=== PATIENT | male | born 1985 | race Caucasian/White ===

== ENCOUNTER 2020-08-02 18:39 | Emergency (ER) | payer MEDICAID ==
[~2020-08-02] VITALS: Ht 180.3 cm; Wt 81.0 kg
[~2020-08-02 18:39] MED LIST: CYCL-1 PO; HYDR-4383 PO; MARIJUANA
[2020-08-02 18:42] VITALS: BP 159/80
[2020-08-02] MEDS ORDERED: HYDROcodone/acetaminophen 5mg/325mg tablet PO ONE (19:30)
[2020-08-02] MEDS ORDERED: ondansetron 4mg rapidly disintigrating tab PO ONE (19:30)
[2020-08-02] MEDS ORDERED: IBUP-1984 PO (19:30)
[2020-08-02] MEDS ORDERED: bacitracin 15gm ointment TP ONE (20:20)
== END 2020-08-02 20:24 | disposition home or self-care (01) ==
LOC: ER 18:40
DX: S40.212A Abrasion of left shoulder, initial encounter (principal); S40.812A Abrasion of left upper arm, initial encounter; S80.812A Abrasion, left lower leg, initial encounter; F12.90 Cannabis use, unspecified, uncomplicated; Z72.89 Other problems related to lifestyle; Z88.5 Allergy status to narcotic agent; Z79.899 Other long term (current) drug therapy; W18.39XA Other fall on same level, initial encounter; Y93.89 Activity, other specified; Y92.89 Other specified places as the place of occurrence of the external cause; Y99.8 Other external cause status
CPT/HCPCS: 99284

== ENCOUNTER 2020-11-03 20:02 | Inpatient (IN) | payer MEDICAID ==
[~2020-11-03] VITALS: Ht 180.3 cm; Wt 72.0 kg
[2020-11-03] MEDS ORDERED: TETanus/Pertussis (Acell)/Diphther VAC/PF (Tdap-Adult) 0.5ml syringe IMVAC ONE (20:15)
[2020-11-03] MEDS ORDERED: ondansetron/PF 4mg/2ml inj IV ONE (20:15)
--- NOTE | 2020-11-03 20:35 | NUR ---
7 cm index finger 23 cm circling palm 26.5 cm forearm
[2020-11-03] MEDS: morphine 4 MG/ML inj SYRINge IV PRN ×2 (20:37→22:21)
--- NOTE | 2020-11-03 20:40 | NUR ---
index 8.5cm hand 21.5 forearm 27.5
[2020-11-03 20:43] LABS: PARTIAL THROMBOPLASTIN TIME 28 SECONDS (22-32)
[2020-11-03 20:46] LABS: BASOPHILS % (AUTO) 0.4 % (0-1); EOSINOPHILS # (AUTO) 0.4 X10'3 (0-0.9); HEMATOCRIT 40.4 % (42.0-52.0); HEMOGLOBIN 13.6 g/dl (14.0-17.9); LYMPHOCYTES # (AUTO) 4.3 X10'3 (1.1-4.8); LYMPHOCYTES % (AUTO) 41.3 % (21-51); MEAN CORPUSCULAR HEMOGLOBIN 29.8 PG (27.0-31.0); MEAN CORPUSCULAR HGB CONC 33.7 g/dL (33.0-36.5); MEAN CORPUSCULAR VOLUME 88.4 FL (78-98); MEAN PLATELET VOLUME 8.2 FL (7.4-10.4); MONOCYTES # (AUTO) 1.1 X10'3 (0-0.9); MONOCYTES % (AUTO) 10.2 % (2-12); NEUTROPHILS # (AUTO) 4.5 X10'3 (1.8-7.7); NEUTROPHILS % (AUTO) 44.1 % (42-75); PLATELET COUNT 313 X10'3 (140-440); RED BLOOD COUNT 4.57 X10'6 (4.70-6.10); RED CELL DISTRIBUTION WIDTH 13.4 % (11.5-14.5); WHITE BLOOD COUNT 10.3 X10'3 (4.5-11.0)
[2020-11-03] MEDS ORDERED: antivenin, crotalidae fab inj 6 VIAL in normal saline 250ml IV soln 250 ML IV STA ×2 (21:33)
[2020-11-03] MEDS ORDERED: magnesium Cl slow-release 64mg tablet PO PRN (22:00)
[2020-11-03] MEDS ORDERED: magnesium 2GM in 50ml NS 50 ML IV PRN (22:00)
[2020-11-03] MEDS ORDERED: morphine 2 MG/ML inj. syringe IV PRN (22:00)
[2020-11-03] MEDS ORDERED: potassium Cl 20 mEq SR tablet PO PRN ×2 (22:00)
[2020-11-03] MEDS ORDERED: mag hydrox/Alum hydrox/simeth 30ml oral suspension PO PRN (22:00)
[2020-11-03] MEDS ORDERED: potassium CL 10mEq/100ml bag 100 ML IV PRN ×2 (22:00)
[2020-11-03] MEDS ORDERED: magnesium hydroxide 30ml (MOM) UD suspension PO PRN (22:00)
[2020-11-03] MEDS ORDERED: acetaminophen 325mg tablet PO PRN (22:00)
[2020-11-03] MEDS ORDERED: magnesium 4gm in 100ml NS 100 ML IV PRN (22:00)
[2020-11-03] MEDS ORDERED: HYDROcodone/acetaminophen 5mg/325mg tablet PO PRN (22:00)
[2020-11-03] MEDS ORDERED: ondansetron/PF 4mg/2ml inj IV PRN (22:00)
[2020-11-03] MEDS ORDERED: METH10OR2 PO (22:16)
--- NOTE | 2020-11-03 22:32 | NUR ---
7.5 cm index 22 palm 27.5 forearm
--- NOTE | 2020-11-04 00:09 | NUR ---
8 cm index 22 cm palm 27.5 cm forearm
[2020-11-04 01:23] LABS: ALANINE AMINOTRANSFERASE 30 U/L (12-78); ALBUMIN 3.9 G/DL (3.4-5.0); ALBUMIN/GLOBULIN RATIO 1.1 (1.1-1.5); ALKALINE PHOSPHATASE 79 IU/L (46-116); ANION GAP 6 (8-16); ASPARTATE AMINO TRANSFERASE 25 U/L (10-37); BILIRUBIN,TOTAL 0.2 MG/DL (0.1-1.0); BLOOD UREA NITROGEN 15 MG/DL (7-18); CALCIUM 8.6 MG/DL (8.5-10.1); CHLORIDE 104 MMOL/L (99-107); CREATININE 0.94 MG/DL (0.60-1.10); GLUCOSE 95 MG/DL (70-104); MAGNESIUM 1.9 MG/DL (1.5-2.4); SODIUM 139 MMOL/L (135-145); TOTAL CARBON DIOXIDE 29.4 MMOL/L (24-32); TOTAL PROTEIN 7.4 G/DL (6.4-8.2); eGFR > 90 ML/MIN
[2020-11-04 01:29] LABS: BASOPHILS # (AUTO) 0.1 X10'3 (0-0.2); BASOPHILS % (AUTO) 0.6 % (0-1); EOSINOPHILS # (AUTO) 0.1 X10'3 (0-0.9); EOSINOPHILS % (AUTO) 1.1 % (0-6); HEMATOCRIT 37.9 % (42.0-52.0); HEMOGLOBIN 13.1 g/dl (14.0-17.9); LYMPHOCYTES # (AUTO) 1.6 X10'3 (1.1-4.8); MEAN CORPUSCULAR HEMOGLOBIN 30.6 PG (27.0-31.0); MEAN CORPUSCULAR HGB CONC 34.7 g/dL (33.0-36.5); MEAN CORPUSCULAR VOLUME 88.3 FL (78-98); MEAN PLATELET VOLUME 7.9 FL (7.4-10.4); MONOCYTES # (AUTO) 0.7 X10'3 (0-0.9); MONOCYTES % (AUTO) 6.9 % (2-12); NEUTROPHILS # (AUTO) 7.3 X10'3 (1.8-7.7); NEUTROPHILS % (AUTO) 75.4 % (42-75); PLATELET COUNT 241 X10'3 (140-440); RED BLOOD COUNT 4.29 X10'6 (4.70-6.10); RED CELL DISTRIBUTION WIDTH 12.9 % (11.5-14.5); WHITE BLOOD COUNT 9.7 X10'3 (4.5-11.0)
--- NOTE | 2020-11-04 01:52 | NUR ---
no changes in swelling. still has pain in finger
[2020-11-04] MEDS: morphine 4 MG/ML inj SYRINge IV PRN ×5 (02:19→18:36)
--- NOTE | 2020-11-04 02:45 | NUR ---
8 cm index 22 palm cm 25 cm forearm
--- NOTE | 2020-11-04 04:34 | NUR ---
8.3 CM INDEX 24CM PALM 27 FOREARM
--- NOTE | 2020-11-04 04:36 | NUR ---
PAGED MD TRAVIS ABOUT INCREASE IN SWELLING
[2020-11-04] MEDS ORDERED: oxyCODONE/APAP 10/325mg tablet PO PRN (04:50)
--- NOTE | 2020-11-04 04:50 | NUR ---
SPOKE WITH POISON CONTROL THEY RECOMMEND 4-6 VIAL DOSE OF CROFAB WITH INCREASE IN SWELLING. PAGED MD ABOUT RECOMMENDATION
[2020-11-04] MEDS ORDERED: methadone 10mg tablet PO ONE (05:35)
--- NOTE | 2020-11-04 06:14 | NUR ---
8.3 cm index 22 cm palm 28 cm forearm
[2020-11-04] MEDS: antivenin, crotalidae fab inj 6 VIAL in normal saline 250ml IV soln 250 ML IV SCH ×4 (06:29→10:51)
--- NOTE | 2020-11-04 07:25 | NUR ---
8.3 index 22.3 wrist 27.7 forearm
[2020-11-04] MEDS ORDERED: METHADONE PO SCH (08:00)
[2020-11-04] MEDS: K and/or MAG REPLACEMENT MC SCH ×2 (08:00→19:04)
[2020-11-04 09:37] LABS: BASOPHILS % (AUTO) 0.3 % (0-1); EOSINOPHILS % (AUTO) 0.4 % (0-6); HEMATOCRIT 41.3 % (42.0-52.0); LYMPHOCYTES # (AUTO) 0.9 X10'3 (1.1-4.8); LYMPHOCYTES % (AUTO) 10.3 % (21-51); MEAN CORPUSCULAR HEMOGLOBIN 29.8 PG (27.0-31.0); MEAN CORPUSCULAR HGB CONC 33.9 g/dL (33.0-36.5); MEAN CORPUSCULAR VOLUME 87.9 FL (78-98); MEAN PLATELET VOLUME 7.7 FL (7.4-10.4); MONOCYTES # (AUTO) 0.5 X10'3 (0-0.9); NEUTROPHILS # (AUTO) 7.5 X10'3 (1.8-7.7); PLATELET COUNT 242 X10'3 (140-440); RED CELL DISTRIBUTION WIDTH 13.1 % (11.5-14.5); WHITE BLOOD COUNT 9.1 X10'3 (4.5-11.0)
--- NOTE | 2020-11-04 09:51 | NUR ---
no changes on swelling
--- NOTE | 2020-11-04 14:24 | NUR ---
8.2 cm index 22.3cm wrist 27 cm forearm
[2020-11-04 14:44] LABS: BASOPHILS # (AUTO) 0.1 X10'3 (0-0.2); BASOPHILS % (AUTO) 0.6 % (0-1); EOSINOPHILS # (AUTO) 0.1 X10'3 (0-0.9); EOSINOPHILS % (AUTO) 0.8 % (0-6); HEMATOCRIT 40.7 % (42.0-52.0); HEMOGLOBIN 14.1 g/dl (14.0-17.9); LYMPHOCYTES # (AUTO) 1.1 X10'3 (1.1-4.8); LYMPHOCYTES % (AUTO) 12.4 % (21-51); MEAN CORPUSCULAR HEMOGLOBIN 30.4 PG (27.0-31.0); MEAN CORPUSCULAR HGB CONC 34.6 g/dL (33.0-36.5); MEAN CORPUSCULAR VOLUME 87.9 FL (78-98); MEAN PLATELET VOLUME 7.6 FL (7.4-10.4); MONOCYTES # (AUTO) 0.9 X10'3 (0-0.9); MONOCYTES % (AUTO) 9.3 % (2-12); NEUTROPHILS # (AUTO) 7.1 X10'3 (1.8-7.7); NEUTROPHILS % (AUTO) 76.9 % (42-75); PLATELET COUNT 272 X10'3 (140-440); RED BLOOD COUNT 4.63 X10'6 (4.70-6.10); RED CELL DISTRIBUTION WIDTH 12.8 % (11.5-14.5); WHITE BLOOD COUNT 9.3 X10'3 (4.5-11.0)
[2020-11-04 17:52] VITALS: BP 121/77
[2020-11-04 18:00] VITALS: BP 105/67
[2020-11-04 21:48] LABS: BASOPHILS # (AUTO) 0.1 X10'3 (0-0.2); BASOPHILS % (AUTO) 0.5 % (0-1); EOSINOPHILS # (AUTO) 0.1 X10'3 (0-0.9); EOSINOPHILS % (AUTO) 0.7 % (0-6); HEMATOCRIT 38.7 % (42.0-52.0); HEMOGLOBIN 13.4 g/dl (14.0-17.9); LYMPHOCYTES # (AUTO) 1.3 X10'3 (1.1-4.8); LYMPHOCYTES % (AUTO) 13.2 % (21-51); MEAN CORPUSCULAR HEMOGLOBIN 30.5 PG (27.0-31.0); MEAN CORPUSCULAR HGB CONC 34.6 g/dL (33.0-36.5); MEAN CORPUSCULAR VOLUME 88.2 FL (78-98); MEAN PLATELET VOLUME 7.7 FL (7.4-10.4); MONOCYTES # (AUTO) 0.7 X10'3 (0-0.9); MONOCYTES % (AUTO) 7.6 % (2-12); NEUTROPHILS # (AUTO) 7.5 X10'3 (1.8-7.7); PLATELET COUNT 237 X10'3 (140-440); RED BLOOD COUNT 4.39 X10'6 (4.70-6.10); WHITE BLOOD COUNT 9.6 X10'3 (4.5-11.0)
[2020-11-04 22:00] VITALS: BP 118/75
[2020-11-05] MEDS ORDERED: morphine 2 MG/ML inj. syringe IV PRN (00:15)
[2020-11-05] MEDS ORDERED: oxyCODONE/APAP 10/325mg tablet PO PRN (00:15)
[2020-11-05 02:00] VITALS: BP 119/76
--- NOTE | 2020-11-05 02:00 | NUR ---
8.0 cm index 22.1 cm wrist 27.0 cm forearm Pt is complaining that the black on the tip of finger is getting more prominent. the swelling is not bigger. MD notified that Pain management is difficult,new orders for increase of pain meds. pain is 8/10 with Percocet 10/325 1tab q6, and Morphine 2mg IV q4. Pt is calling out , moaning.
[2020-11-05] MEDS ORDERED: HYDROmorphone 1 mg/ml syringe IV ONE (04:55)
[2020-11-05] MEDS ORDERED: methadone 10mg tablet PO SCH (04:55)
[2020-11-05 06:00] VITALS: BP 94/51
[2020-11-05 06:16] LABS: BASOPHILS % (AUTO) 0.5 % (0-1); EOSINOPHILS # (AUTO) 0.2 X10'3 (0-0.9); EOSINOPHILS % (AUTO) 2.6 % (0-6); HEMATOCRIT 38.6 % (42.0-52.0); HEMOGLOBIN 13.2 g/dl (14.0-17.9); LYMPHOCYTES # (AUTO) 1.4 X10'3 (1.1-4.8); LYMPHOCYTES % (AUTO) 15.2 % (21-51); MEAN CORPUSCULAR HGB CONC 34.1 g/dL (33.0-36.5); MEAN CORPUSCULAR VOLUME 87.8 FL (78-98); MEAN PLATELET VOLUME 7.8 FL (7.4-10.4); MONOCYTES # (AUTO) 0.9 X10'3 (0-0.9); MONOCYTES % (AUTO) 10.2 % (2-12); NEUTROPHILS # (AUTO) 6.5 X10'3 (1.8-7.7); NEUTROPHILS % (AUTO) 71.5 % (42-75); PLATELET COUNT 237 X10'3 (140-440); RED CELL DISTRIBUTION WIDTH 12.9 % (11.5-14.5); WHITE BLOOD COUNT 9.1 X10'3 (4.5-11.0)
--- NOTE | 2020-11-05 06:28 | NUR ---
REPORT GIVEN TO ELIF LOBO.
[2020-11-05 06:43] LABS: ALANINE AMINOTRANSFERASE 29 U/L (12-78); ALBUMIN 3.9 G/DL (3.4-5.0); ALBUMIN/GLOBULIN RATIO 1.1 (1.1-1.5); ALKALINE PHOSPHATASE 69 IU/L (46-116); ANION GAP 7 (8-16); ASPARTATE AMINO TRANSFERASE 21 U/L (10-37); BILIRUBIN,TOTAL 0.6 MG/DL (0.1-1.0); BLOOD UREA NITROGEN 13 MG/DL (7-18); BUN/CREATININE RATIO 16.9 (5.4-32.0); CALCIUM 8.8 MG/DL (8.5-10.1); CHLORIDE 104 MMOL/L (99-107); CREATININE 0.77 MG/DL (0.60-1.10); GLUCOSE 101 MG/DL (70-104); MAGNESIUM 1.8 MG/DL (1.5-2.4); POTASSIUM 3.6 MMOL/L (3.5-5.1); SODIUM 139 MMOL/L (135-145); TOTAL CARBON DIOXIDE 27.7 MMOL/L (24-32); TOTAL PROTEIN 7.5 G/DL (6.4-8.2); eGFR > 90 ML/MIN
--- NOTE | 2020-11-05 06:48 | NUR ---
Patient in room PCU 3018. I have received report from Kassandra ASENCIO and had the opportunity to ask questions and assume patient care.
[2020-11-05] MEDS: K and/or MAG REPLACEMENT MC SCH ×2 (08:00→20:00)
--- NOTE | 2020-11-05 09:46 | NUR ---
Spoke to Poison Control Mally, regarding pt's labs and dosage of meds. pt is improving, necrotic area seems to have grown. Poison control recommends repeat of platelets, PT/INR/Fibrinogens amd to monitor pt for 24hrs after the last antivenom meds administration. Dr Schaefer will be notified.
[2020-11-05] MEDS ORDERED: methadone 10mg tablet PO ONE (10:10)
--- NOTE | 2020-11-05 10:53 | NUR ---
PAGER ID: [phone] MESSAGE: Shelton Covert#[id number] Spoke to poison control RE: Pt, recommendations to repeat PT/INR/Fibrinogen levels and 24hr observation after the last antivenom dose which was given 11/04. Thank you. Tawana [id number]
[2020-11-05 11:00] VITALS: BP 118/84
--- NOTE | 2020-11-05 13:59 | NUR ---
Spoke to poison control Mally, reviews the PT/INR/ Fibrinogens results. Poison control recommends if patient is DC today to make sure top repeat CBC, PT/INR/ Fibrinogens within 48-72 hrs. Pt to avoid contact sports that might effect pt's bleeding tendencies. Keep affected area elevated at all times. Dr eRnner will be notied.
--- NOTE | 2020-11-05 14:09 | NUR ---
PAGER ID: [phone] MESSAGE: Spoke to poison control Mally, PT/INR/ Fibrinogens results. Poison control recommends CBC, PT/INR/ Fibrinogens within 48-72 hrs. Pt avoid contact sports.Keep affected area elevated at all times. Tawana [phone]
[2020-11-05] MEDS: HYDROmorphone 1 mg/ml syringe IV PRN ×3 (15:00→23:43)
[2020-11-05 15:49] VITALS: BP 102/63
--- NOTE | 2020-11-05 18:53 | NUR ---
Problems reprioritized. Patient report given, questions answered & plan of care reviewed with Larry ASENCIO.
[2020-11-05] MEDS: vancomycin/NS 1 GM ADD-VANTAGE 250 ML IV SCH (19:32)
[2020-11-05 20:16] LABS: URINE AMPHETAMINE SCREEN NEGATIVE (Neg); URINE BARBITUATE SCREEN NEGATIVE (Neg); URINE BENZODIAZEPINES SCREEN NEGATIVE (Neg); URINE CANNABINOID SCREEN POSITIVE (Neg); URINE COCAINE SCREEN NEGATIVE (Neg); URINE METHADONE SCREEN POSITIVE (Neg); URINE OPIATE SCREEN POSITIVE (Neg); URINE PHENCYCLIDINE SCREEN NEGATIVE (Neg)
--- NOTE | 2020-11-05 21:00 | NUR ---
Problems reprioritized. Patient report given, questions answered & plan of care reviewed with Tricia ASENCIO.
[2020-11-05] MEDS: piperacillin/tazo 3.375gm/50ml 50 ML IV SCH (23:42)
[2020-11-06] VITALS: BP 114/83
[2020-11-06] MEDS: vancomycin/NS 1 GM ADD-VANTAGE 250 ML IV SCH ×2 (01:50→12:01)
[2020-11-06] MEDS: ketorolac trometh. 30mg/ml inj. IV SCH ×4 (03:02→20:17)
[2020-11-06] MEDS: HYDROmorphone 1 mg/ml syringe IV PRN ×2 (03:25→07:58)
[2020-11-06] MEDS ORDERED: LORazepam 2 mg/ml vial IV ONE (04:55)
[2020-11-06 06:02] LABS: BASOPHILS # (AUTO) 0.1 X10'3 (0-0.2); BASOPHILS % (AUTO) 0.5 % (0-1); EOSINOPHILS # (AUTO) 0.4 X10'3 (0-0.9); EOSINOPHILS % (AUTO) 4.5 % (0-6); HEMATOCRIT 41.7 % (42.0-52.0); LYMPHOCYTES # (AUTO) 2.2 X10'3 (1.1-4.8); LYMPHOCYTES % (AUTO) 22.8 % (21-51); MEAN CORPUSCULAR HEMOGLOBIN 29.8 PG (27.0-31.0); MEAN CORPUSCULAR HGB CONC 33.6 g/dL (33.0-36.5); MEAN CORPUSCULAR VOLUME 88.5 FL (78-98); MEAN PLATELET VOLUME 8.2 FL (7.4-10.4); MONOCYTES # (AUTO) 1.1 X10'3 (0-0.9); MONOCYTES % (AUTO) 11.8 % (2-12); NEUTROPHILS # (AUTO) 5.8 X10'3 (1.8-7.7); NEUTROPHILS % (AUTO) 60.4 % (42-75); PLATELET COUNT 261 X10'3 (140-440); RED BLOOD COUNT 4.71 X10'6 (4.70-6.10); RED CELL DISTRIBUTION WIDTH 13.4 % (11.5-14.5); WHITE BLOOD COUNT 9.7 X10'3 (4.5-11.0)
[2020-11-06 06:17] LABS: PARTIAL THROMBOPLASTIN TIME 31 SECONDS (22-32)
[2020-11-06 06:36] LABS: ALANINE AMINOTRANSFERASE 27 U/L (12-78); ALBUMIN 4.1 G/DL (3.4-5.0); ALBUMIN/GLOBULIN RATIO 1.1 (1.1-1.5); ALKALINE PHOSPHATASE 74 IU/L (46-116); ANION GAP 8 (8-16); ASPARTATE AMINO TRANSFERASE 18 U/L (10-37); BILIRUBIN,TOTAL 0.6 MG/DL (0.1-1.0); BLOOD UREA NITROGEN 15 MG/DL (7-18); BUN/CREATININE RATIO 14.6 (5.4-32.0); CALCIUM 9.2 MG/DL (8.5-10.1); CHLORIDE 105 MMOL/L (99-107); CREATININE 1.03 MG/DL (0.60-1.10); GLUCOSE 87 MG/DL (70-104); MAGNESIUM 1.8 MG/DL (1.5-2.4); POTASSIUM 4.3 MMOL/L (3.5-5.1); SODIUM 140 MMOL/L (135-145); eGFR 83 ML/MIN
--- NOTE | 2020-11-06 06:46 | NUR ---
REPORT GIVEN TO ELIF PARIS.
[2020-11-06] MEDS: piperacillin/tazo 3.375gm/50ml 50 ML IV SCH ×2 (07:55→16:40)
[2020-11-06 08:00] VITALS: BP 115/60
[2020-11-06] MEDS: K and/or MAG REPLACEMENT MC SCH ×2 (08:00→20:00)
[2020-11-06 11:00] VITALS: BP 119/84
[2020-11-06] MEDS ORDERED: GADOTERATE MEGLUMINE 7.5 MMOL/15 ML VIAL IV ONE (11:50)
[2020-11-06] MEDS: methadone 5mg tablet PO SCH (14:08)
[2020-11-06] MEDS: methadone 10mg tablet PO SCH (14:08)
--- NOTE | 2020-11-06 14:37 | NUR ---
Called Poison Control at [phone] per primary nurse Roger request to find out if they recommend any further testing or medication for the snake bite. I spoke to Robin from [facility] Control, he said he is a pharmacist there. According to Robin, usually further work up needed within 48-72 hour after antivenom given. Coagulation test PT, INR, PTT, and fibrinogen test results for today reviewed. Xray of hand result relayed to him too. Per Robin, there's no need for further lab test needed at this time.
--- NOTE | 2020-11-06 14:51 | NUR ---
Dr. Sampson seen patient. Per Dr. Sampson no surgery needed Addendum: 11/06/20 at 1455 by Alfonzo Del Valle RN Paged Dr. Renner regarding above note
--- NOTE | 2020-11-06 18:19 | NUR ---
Problems reprioritized. Patient report given, questions answered & plan of care reviewed with Michelle ASENCIO.
--- NOTE | 2020-11-06 18:21 | NUR ---
Patient in room CASEY 355. I have received report from Roger ASENCIO and had the opportunity to ask questions and assume patient care.
--- NOTE | 2020-11-06 18:21 | NUR ---
Patient in room CASE[facility] 355. I have received report from ELIF Duran and had the opportunity to ask questions and assume patient care.
[2020-11-06 20:00] VITALS: BP 90/54
[2020-11-06] MEDS ORDERED: vancomycin/NS 1 GM ADD-VANTAGE 250 ML IV SCH (22:00)
[2020-11-07] VITALS: BP 114/73
[2020-11-07] MEDS: HYDROmorphone 1 mg/ml syringe IV PRN (00:07)
[2020-11-07] MEDS: piperacillin/tazo 3.375gm/50ml 50 ML IV SCH ×2 (00:07→09:00)
--- NOTE | 2020-11-07 00:08 | NUR ---
Per Mazin in pharmacy, timing of vanco dose at 1800 incorrect. States vanco will be retimed and new trough order placed accordingly.
[2020-11-07] MEDS ORDERED: VANCOMYCIN LEVEL IV ONE (01:30)
[2020-11-07] MEDS: ketorolac trometh. 30mg/ml inj. IV SCH ×2 (02:26→08:59)
--- NOTE | 2020-11-07 06:15 | NUR ---
Problems reprioritized. Patient report given, questions answered & plan of care reviewed with ELIF Willis.
--- NOTE | 2020-11-07 06:20 | NUR ---
Patient in room [facility]Y 355. I have received report from Michelle ASENCIO and had the opportunity to ask questions and assume patient care.
[2020-11-07 06:24] LABS: BASOPHILS # (AUTO) 0.1 X10'3 (0-0.2); BASOPHILS % (AUTO) 0.8 % (0-1); EOSINOPHILS # (AUTO) 0.3 X10'3 (0-0.9); EOSINOPHILS % (AUTO) 4.7 % (0-6); HEMATOCRIT 38.9 % (42.0-52.0); HEMOGLOBIN 13.3 g/dl (14.0-17.9); MEAN CORPUSCULAR HEMOGLOBIN 30.1 PG (27.0-31.0); MEAN CORPUSCULAR HGB CONC 34.2 g/dL (33.0-36.5); MEAN CORPUSCULAR VOLUME 88.1 FL (78-98); MEAN PLATELET VOLUME 7.9 FL (7.4-10.4); MONOCYTES # (AUTO) 0.9 X10'3 (0-0.9); MONOCYTES % (AUTO) 12.4 % (2-12); NEUTROPHILS # (AUTO) 3.8 X10'3 (1.8-7.7); NEUTROPHILS % (AUTO) 54.1 % (42-75); PLATELET COUNT 207 X10'3 (140-440); RED BLOOD COUNT 4.42 X10'6 (4.70-6.10); RED CELL DISTRIBUTION WIDTH 13.1 % (11.5-14.5); WHITE BLOOD COUNT 7.1 X10'3 (4.5-11.0)
[2020-11-07 06:38] LABS: PARTIAL THROMBOPLASTIN TIME 30 SECONDS (22-32)
[2020-11-07 06:51] LABS: ALANINE AMINOTRANSFERASE 20 U/L (12-78); ALBUMIN 3.6 G/DL (3.4-5.0); ALKALINE PHOSPHATASE 66 IU/L (46-116); ANION GAP 10 (8-16); ASPARTATE AMINO TRANSFERASE 13 U/L (10-37); BILIRUBIN,TOTAL 0.5 MG/DL (0.1-1.0); BLOOD UREA NITROGEN 21 MG/DL (7-18); BUN/CREATININE RATIO 22.3 (5.4-32.0); CALCIUM 9.2 MG/DL (8.5-10.1); CHLORIDE 108 MMOL/L (99-107); CREATININE 0.94 MG/DL (0.60-1.10); GLUCOSE 91 MG/DL (70-104); POTASSIUM 4.1 MMOL/L (3.5-5.1); SODIUM 143 MMOL/L (135-145); TOTAL PROTEIN 7.1 G/DL (6.4-8.2); eGFR > 90 ML/MIN
[2020-11-07 08:00] VITALS: BP 117/72
[2020-11-07] MEDS ORDERED: vancomycin/NS 1 GM ADD-VANTAGE 250 ML IV SCH (08:00)
[2020-11-07] MEDS: K and/or MAG REPLACEMENT MC SCH (08:00)
[2020-11-07] MEDS: methadone 5mg tablet PO SCH (09:00)
[2020-11-07] MEDS: methadone 10mg tablet PO SCH (09:01)
[2020-11-07] MEDS ORDERED: AMOX-580 PO (10:47)
[2020-11-07 11:00] VITALS: BP 116/78
--- NOTE | 2020-11-07 15:37 | NUR ---
Reviewed discharge paperwork with pt. Discussed follow up appointment with outpt wound care, warning signs and symptoms and antibiotic therapy. Pt belongings were bagged up and given to pt, IV was removed with cannula intact. Pt was escorted to the lobby where his ride was waiting. Pt had no signs of distress at the time of discharge.
[2020-11-07] MEDS ORDERED: lactobacillus rhamnosus 10,000 MMU CELLS/CAPSULE PO SCH (20:00)
[2020-11-08] MEDS ORDERED: VANCOMYCIN LEVEL IV ONE (07:30)
== END 2020-11-07 16:57 | disposition home or self-care (01) | DRG 816 ==
LOC: ER 20:02 → ED HOLD 21:56 → PCU 3S 11-04 17:19 → SUR 3N 11-05 21:11
PROVIDERS: ADMIT Family Medicine; ATTEND Family Medicine
PROC: 3E0234Z Introduction of Serum, Toxoid and Vaccine into Muscle, Percutaneous Approach (ICD-10-PCS; principal; 2020-11-03)
DX: T63.011A Toxic effect of rattlesnake venom, accidental (unintentional), initial encounter (principal); M79.644 Pain in right finger(s); G89.4 Chronic pain syndrome; F12.10 Cannabis abuse, uncomplicated; Z83.3 Family history of diabetes mellitus; Z87.891 Personal history of nicotine dependence; Z23 Encounter for immunization; Y92.89 Other specified places as the place of occurrence of the external cause; Z88.5 Allergy status to narcotic agent; Z79.899 Other long term (current) drug therapy; Z82.49 Family history of ischemic heart disease and other diseases of the circulatory system; Z71.51 Drug abuse counseling and surveillance of drug abuser
CPT/HCPCS: 36415; 73130; 73220; 80053; 80305; 83735; 84145; 85025; 85384; 85610; 85730; 87081; 90471; 90715; 96365; 96375; 99291; A9575; G0378; J1170; J1885; J2060; J2270; J2405; J2543; J3370; J7050

== ENCOUNTER 2020-11-08 15:30 | Emergency (ER) | payer MEDICAID ==
[~2020-11-08] VITALS: Ht 180.3 cm; Wt 75.0 kg
[~2020-11-08 15:30] MED LIST changes: +AMOX-580 PO; -CYCL-1 PO; -HYDR-4383 PO; -MARIJUANA; +METH10OR2 PO
[2020-11-08 15:39] VITALS: BP 132/68
== END 2020-11-08 18:31 | disposition home or self-care (01) ==
LOC: ER 15:30
DX: S60.021A Contusion of right index finger without damage to nail, initial encounter (principal); T63.011A Toxic effect of rattlesnake venom, accidental (unintentional), initial encounter; F17.200 Nicotine dependence, unspecified, uncomplicated; F12.90 Cannabis use, unspecified, uncomplicated; Z72.89 Other problems related to lifestyle; Z88.5 Allergy status to narcotic agent; Z79.2 Long term (current) use of antibiotics; Z79.899 Other long term (current) drug therapy; Y92.89 Other specified places as the place of occurrence of the external cause; Y93.89 Activity, other specified; Y99.8 Other external cause status
CPT/HCPCS: 10140; 11740; 99284

== ENCOUNTER 2022-03-09 22:22 | Inpatient (IN) | payer MEDICAID ==
[~2022-03-09] VITALS: Ht 180.3 cm; Wt 72.7 kg
[~2022-03-09 22:22] MED LIST changes: -AMOX-580 PO; +temazepam 15mg capsule PO PRN
--- NOTE | 2022-03-09 22:43 | NUR ---
PATIENT TO RADIOLOGY
[2022-03-09] MEDS ORDERED: morphine 4 MG/ML inj SYRINge IV ONE (23:00)
[2022-03-09] MEDS ORDERED: ondansetron/PF 4mg/2ml inj IV ONE (23:00)
[2022-03-09 23:32] LABS: BASOPHILS % (AUTO) 0.4 % (0-1); EOSINOPHILS # (AUTO) 0.1 X10'3 (0-0.9); HEMATOCRIT 38.6 % (42.0-52.0); HEMOGLOBIN 13.5 g/dl (14.0-17.9); LYMPHOCYTES # (AUTO) 1.6 X10'3 (1.1-4.8); MEAN CORPUSCULAR HEMOGLOBIN 29.7 PG (27.0-31.0); MEAN CORPUSCULAR VOLUME 84.9 FL (78-98); MEAN PLATELET VOLUME 7.1 FL (7.4-10.4); MONOCYTES # (AUTO) 0.7 X10'3 (0-0.9); MONOCYTES % (AUTO) 6.8 % (2-12); NEUTROPHILS # (AUTO) 8.4 X10'3 (1.8-7.7); NEUTROPHILS % (AUTO) 76.8 % (42-75); PLATELET COUNT 344 X10'3 (140-440); RED BLOOD COUNT 4.54 X10'6 (4.70-6.10); RED CELL DISTRIBUTION WIDTH 13.7 % (11.5-14.5); WHITE BLOOD COUNT 10.9 X10'3 (4.5-11.0)
[2022-03-09] MEDS ORDERED: acetaminophen 650mg rectal suppository RC PRN (23:35)
[2022-03-09] MEDS ORDERED: ondansetron 4mg rapidly disintigrating tab PO PRN (23:35)
[2022-03-09] MEDS ORDERED: mag hydrox/Alum hydrox/simeth 30ml oral suspension PO PRN (23:35)
[2022-03-09] MEDS ORDERED: diphenhydrAMINE 50 mg/ml inj IV PRN (23:35)
[2022-03-09] MEDS ORDERED: bisacodyl 10mg suppository rectal RC PRN (23:35)
[2022-03-09] MEDS ORDERED: HYDROcodone/acetaminophen 5mg/325mg tablet PO PRN (23:35)
[2022-03-09] MEDS ORDERED: diphenhydrAMINE 25mg capsule PO PRN (23:35)
[2022-03-09] MEDS ORDERED: acetaminophen 325mg tablet PO PRN ×2 (23:35)
[2022-03-09] MEDS ORDERED: magnesium hydroxide 30ml (MOM) UD suspension PO PRN (23:35)
[2022-03-09] MEDS ORDERED: morphine 2 MG/ML inj. syringe IV PRN (23:35)
[2022-03-09] MEDS ORDERED: HYDROmorphone inj. 0.5 MG/0.5 ML DISP.SYRIN IV PRN (23:35)
[2022-03-09] MEDS ORDERED: naloxone 0.4 mg/ml inj IV PRN (23:35)
[2022-03-09] MEDS ORDERED: ondansetron/PF 4mg/2ml inj IV PRN (23:35)
[2022-03-09 23:44] LABS: APTT 26 SECONDS (22-32)
[2022-03-09 23:46] LABS: ALANINE AMINOTRANSFERASE 31 U/L (12-78); ALKALINE PHOSPHATASE 79 IU/L (46-116); ANION GAP 4 (8-16); ASPARTATE AMINO TRANSFERASE 30 U/L (10-37); BILIRUBIN,TOTAL 0.4 MG/DL (0.1-1.0); BLOOD UREA NITROGEN 18 MG/DL (7-18); BUN/CREATININE RATIO 17.6 (5.4-32.0); CALCIUM 8.9 MG/DL (8.5-10.1); CHLORIDE 104 MMOL/L (99-107); CREATININE 1.02 MG/DL (0.60-1.10); GLUCOSE 121 MG/DL (70-104); POTASSIUM 3.5 MMOL/L (3.5-5.1); SODIUM 138 MMOL/L (135-145); TOTAL CARBON DIOXIDE 29.8 MMOL/L (24-32); eGFR 83 ML/MIN
[2022-03-10] VITALS (18 sets, daily range): BP systolic 101–140; BP diastolic 52–86
[2022-03-10] MEDS: morphine 2 MG/ML inj. syringe IV PRN ×3 (00:01→08:50)
[2022-03-10] MEDS: normal saline 1000ml 1,000 ML IV SCH ×3 (00:03→20:24)
[2022-03-10] MEDS: HYDROcodone/acetaminophen 10/325mg tab PO PRN ×4 (00:08→23:51)
[2022-03-10] MEDS ORDERED: METH-603 PO (00:45)
[2022-03-10] MEDS ORDERED: morphine 4 MG/ML inj SYRINge IV ONE (01:15)
[2022-03-10] MEDS ORDERED: HYDROmorphone 1 mg/ml syringe IV ONE ×2 (01:50→02:00)
--- NOTE | 2022-03-10 01:51 | NUR ---
Patient rec'd 4mg Morphine 30min ago and it did not tough his pain 09/08. Per Dr. Barclay ok to give Dilaudid 1mg now.
[2022-03-10 02:00] LABS: PHOSPHORUS 2.3 MG/DL (2.3-4.5)
[2022-03-10 02:06] LABS: MAGNESIUM 2.1 MG/DL (1.5-2.4)
--- NOTE | 2022-03-10 04:28 | NUR ---
Cld Dr. Langford as I am unable to control patient's pain, I requested Dilaudid CADD. Per MD order Dilaudid 1mg IV Q4hrs prn pain.
[2022-03-10] MEDS: HYDROmorphone 1 mg/ml syringe IV PRN ×2 (04:51→15:48)
[2022-03-10] MEDS ORDERED: fentaNYL/PF 50MCG/1 ML 2ML syringe IV ONE (06:10)
--- NOTE | 2022-03-10 07:18 | NUR ---
Received report from Rhina in ER. Patient has no lorenzo, called back to get order. Patient did have an ortho consult, Operating Room is holding for Dr. Leija.
--- NOTE | 2022-03-10 07:26 | NUR ---
Message: [id number] Covert, Shelton March I get a lorenzo for him prior to surgery. Jessica [id number]
[2022-03-10 07:32] LABS: BASOPHILS % (AUTO) 0.2 % (0-1); EOSINOPHILS % (AUTO) 0 % (0-6); HEMATOCRIT 40.1 % (42.0-52.0); HEMOGLOBIN 13.7 g/dl (14.0-17.9); LYMPHOCYTES # (AUTO) 0.9 X10'3 (1.1-4.8); LYMPHOCYTES % (AUTO) 6.1 % (21-51); MEAN CORPUSCULAR HEMOGLOBIN 29.4 PG (27.0-31.0); MEAN CORPUSCULAR HGB CONC 34.2 g/dL (33.0-36.5); MEAN CORPUSCULAR VOLUME 86.1 FL (78-98); MEAN PLATELET VOLUME 6.9 FL (7.4-10.4); MONOCYTES # (AUTO) 1.3 X10'3 (0-0.9); MONOCYTES % (AUTO) 8.3 % (2-12); NEUTROPHILS # (AUTO) 12.9 X10'3 (1.8-7.7); NEUTROPHILS % (AUTO) 85.4 % (42-75); PLATELET COUNT 337 X10'3 (140-440); RED BLOOD COUNT 4.66 X10'6 (4.70-6.10); RED CELL DISTRIBUTION WIDTH 13.8 % (11.5-14.5); WHITE BLOOD COUNT 15.1 X10'3 (4.5-11.0)
[2022-03-10 07:53] LABS: ALANINE AMINOTRANSFERASE 27 U/L (12-78); ALBUMIN 3.7 G/DL (3.4-5.0); ALKALINE PHOSPHATASE 73 IU/L (46-116); ANION GAP 7 (8-16); ASPARTATE AMINO TRANSFERASE 25 U/L (10-37); BILIRUBIN,TOTAL 0.7 MG/DL (0.1-1.0); BLOOD UREA NITROGEN 15 MG/DL (7-18); BUN/CREATININE RATIO 18.3 (5.4-32.0); CALCIUM 8.4 MG/DL (8.5-10.1); CHLORIDE 104 MMOL/L (99-107); CREATININE 0.82 MG/DL (0.60-1.10); GLUCOSE 117 MG/DL (70-104); POTASSIUM 3.8 MMOL/L (3.5-5.1); SODIUM 137 MMOL/L (135-145); TOTAL CARBON DIOXIDE 25.7 MMOL/L (24-32); TOTAL PROTEIN 7.4 G/DL (6.4-8.2); eGFR > 90 ML/MIN
[2022-03-10] MEDS: docusate sod 100mg capsule PO SCH ×2 (08:00→20:00)
[2022-03-10] MEDS ORDERED: pantoprazole 40MG/NS 100ML BAG 100 ML IV SCH (08:00)
--- NOTE | 2022-03-10 08:01 | NUR ---
Patient to floor, paged Dr. Renner for Aquino.
--- NOTE | 2022-03-10 08:03 | NUR ---
Message: [id number] Covert, Shelton March I get a lorenzo cath and muscle relaxer, patient has a fractured hip and will be going to surgery later. Jessica [id number]
[2022-03-10] MEDS ORDERED: LIDOcaine 2% 10ml TOPICAL JELLY (Urojet) TP ONE (08:20)
[2022-03-10] MEDS: cyclobenzaprine 10mg tablet PO PRN ×2 (08:50→20:18)
--- NOTE | 2022-03-10 09:02 | NUR ---
Patient refused catheter, educated him they will likely place one in surgery.
[2022-03-10] MEDS ORDERED: magnesium 4gm in 100ml NS 100 ML IV PRN (09:15)
[2022-03-10] MEDS ORDERED: potassium Cl 20 mEq SR tablet PO PRN ×2 (09:15)
[2022-03-10] MEDS ORDERED: magnesium Cl slow-release 64mg tablet PO PRN (09:15)
[2022-03-10] MEDS ORDERED: potassium CL 10mEq/100ml bag 100 ML IV PRN (09:15)
--- NOTE | 2022-03-10 11:05 | NUR ---
Patient to OR, VIA OR TECHS
[2022-03-10] MEDS ORDERED: ondansetron/PF 4mg/2ml inj IV PRN (11:10)
[2022-03-10] MEDS ORDERED: ringers solution, lacted 1,000 ML IV SCH (11:10)
[2022-03-10] MEDS ORDERED: morphine 2 MG/ML inj. syringe IV PRN (11:10)
[2022-03-10] MEDS ORDERED: meperidine/PF 25mg/ml syringe IV PRN ×3 (11:10)
[2022-03-10] MEDS ORDERED: proCHLORperazine 10 MG/2 ml inj IV PRN (11:10)
[2022-03-10] MEDS ORDERED: sevoflurane 250ml liquid IH ONE (11:26)
[2022-03-10] MEDS ORDERED: fentaNYL /PF 50mcg/ml 5ml ampule ONE (11:31)
[2022-03-10] MEDS ORDERED: midazolam 1 mg/ML 2ml injection ONE (11:31)
[2022-03-10] MEDS ORDERED: propofol inj 20 ML IV ONE (11:31)
[2022-03-10] MEDS ORDERED: ceFAZolin 1000mg inj ONE ×2 (11:48)
[2022-03-10] MEDS ORDERED: BUPIVAcaine 0.5% inj/PF 30 ML ONE (11:49)
[2022-03-10] MEDS ORDERED: vancomycin 1,000mg inj ONE (11:50)
[2022-03-10] MEDS ORDERED: BUPIVAcaine 0.5% inj/PF 30 ml vial IJ ONE (12:14)
--- NOTE | 2022-03-10 12:41 | NUR ---
Received from OR via BED, accompanied by Anesthesiologist DR. FARMER and report given by Anesthesiolgist AND OR NURSE. PT ARRIVED DISORIENTED, CRYING AND TOSSING IN BED. PT REMOVED 02 MASK. VSS UPON ARRIVAL. 02 SAT 100% ON ROOM AIR. MEDICATED PER EMAR WITH MORPHINE AND PT BECAME CALM WITH EYES CLOSED. 18 G IV TO RIGHT AC RUNNING LR AT 100ML/HR. GAUZE DRESSING C/D/I ON LEFT HIP. WILL CONTINUE TO MONITOR. Addendum: 03/10/22 at 1313 by Irene Ayala RN Amended: Links added. Addendum: 03/10/22 at 1316 by Irene Ayala RN PT'S IV IS A 20 G TO RIGHT AC.
[2022-03-10] MEDS: morphine 4 MG/ML inj SYRINge IV PRN ×2 (12:54→13:35)
--- NOTE | 2022-03-10 13:51 | NUR ---
Report called to receiving nurse ELIF CASPER. Transferred via BED. ALL Belongings IN PT ROOM WHERE HE CAME FROM. Special Issues communicated to receiving nurse. VSS. PT DENIES NAUSEA. HE APPEARS TO BE IN AND OUT OF PAIN. HE MOANS LIKE HE DID PRIOR TO SURGERY. LEFT HIP DRESSING C/D/I. HE HAS MET D/C CRITERIA TO FOR THE RECOVERY ROOM. PT HAS BEEN TRANSPORT[facility] BY [facility] BACK TO HIS ROOM WHERE THE PRIMARY NURSE WILL ASSUME CARE. Addendum: 03/10/22 at 1358 by Irene Ayala RN Amended: Links added.
[2022-03-10] MEDS: ceFAZolin/D5W- 1GM premix 50 ML IV SCH ×2 (15:57→23:50)
--- NOTE | 2022-03-10 18:27 | NUR ---
Problems reprioritized. Patient report given, questions answered & plan of care reviewed with Hollie ASENCIO.
[2022-03-10] MEDS: K and/or MAG REPLACEMENT MC SCH (20:00)
[2022-03-11 02:00] VITALS: BP 92/52
[2022-03-11] MEDS: HYDROcodone/acetaminophen 10/325mg tab PO PRN ×2 (04:24→09:56)
[2022-03-11] MEDS: cyclobenzaprine 10mg tablet PO PRN (04:25)
[2022-03-11] MEDS: normal saline 1000ml 1,000 ML IV SCH (04:30)
[2022-03-11 06:00] VITALS: BP 104/60
--- NOTE | 2022-03-11 06:30 | NUR ---
Patient in room ORTHO 4017. I have received report from Hollie RN and had the opportunity to ask questions and assume patient care.
--- NOTE | 2022-03-11 07:00 | NUR ---
Pharmacy called to switch protonix to PO instead of IV
[2022-03-11] MEDS ORDERED: pantoprazole 40mg Tablet.DR PO SCH (07:30)
[2022-03-11 07:31] LABS: BASOPHILS % (AUTO) 0.4 % (0-1); EOSINOPHILS # (AUTO) 0.2 X10'3 (0-0.9); EOSINOPHILS % (AUTO) 1.7 % (0-6); HEMATOCRIT 35.4 % (42.0-52.0); LYMPHOCYTES # (AUTO) 1.2 X10'3 (1.1-4.8); LYMPHOCYTES % (AUTO) 11.9 % (21-51); MEAN CORPUSCULAR HGB CONC 33.9 g/dL (33.0-36.5); MEAN CORPUSCULAR VOLUME 85.4 FL (78-98); MONOCYTES # (AUTO) 1.1 X10'3 (0-0.9); MONOCYTES % (AUTO) 10.5 % (2-12); NEUTROPHILS # (AUTO) 7.8 X10'3 (1.8-7.7); NEUTROPHILS % (AUTO) 75.5 % (42-75); PLATELET COUNT 284 X10'3 (140-440); RED BLOOD COUNT 4.14 X10'6 (4.70-6.10); RED CELL DISTRIBUTION WIDTH 13.8 % (11.5-14.5); WHITE BLOOD COUNT 10.3 X10'3 (4.5-11.0)
[2022-03-11 07:47] LABS: ALANINE AMINOTRANSFERASE 22 U/L (12-78); ALBUMIN/GLOBULIN RATIO 0.9 (1.1-1.5); ALKALINE PHOSPHATASE 59 IU/L (46-116); ANION GAP 6 (8-16); ASPARTATE AMINO TRANSFERASE 24 U/L (10-37); BILIRUBIN,TOTAL 0.6 MG/DL (0.1-1.0); BLOOD UREA NITROGEN 8 MG/DL (7-18); BUN/CREATININE RATIO 11.3 (5.4-32.0); CALCIUM 7.7 MG/DL (8.5-10.1); CHLORIDE 106 MMOL/L (99-107); CREATININE 0.71 MG/DL (0.60-1.10); GLUCOSE 99 MG/DL (70-104); MAGNESIUM 1.7 MG/DL (1.5-2.4); PHOSPHORUS 2.3 MG/DL (2.3-4.5); POTASSIUM 3.5 MMOL/L (3.5-5.1); SODIUM 140 MMOL/L (135-145); TOTAL CARBON DIOXIDE 28.2 MMOL/L (24-32); TOTAL PROTEIN 6.5 G/DL (6.4-8.2); eGFR > 90 ML/MIN
[2022-03-11] MEDS: K and/or MAG REPLACEMENT MC SCH (08:00)
[2022-03-11] MEDS ORDERED: methadone 10mg tablet PO SCH (08:00)
[2022-03-11] MEDS: docusate sod 100mg capsule PO SCH (08:02)
--- NOTE | 2022-03-11 11:43 | NUR ---
Walked patient 300ft around floor T[facility] with FWW.
--- NOTE | 2022-03-11 12:54 | NUR ---
Message: [phone] Covert, Shelton PT has cleared patient to go home, and he has his crutches. Jessica [phone]
[2022-03-11] MEDS ORDERED: CYCL-1 PO (12:58)
[2022-03-11] MEDS ORDERED: ENOX40DI11 SUBCUT (12:58)
[2022-03-11] MEDS ORDERED: PANT40TA54 PO (12:58)
[2022-03-11] MEDS ORDERED: ondansetron 4mg rapidly disintigrating tab PO PRN (13:00)
--- NOTE | 2022-03-11 13:45 | NUR ---
Discharge instructions reviewed with patient, and questions answered. IV removed from L Forearm, catheter intact. Patient waiting for his mom to bring him clothes so he can go home.
[2022-03-11] MEDS ORDERED: enoxaparin 40mg/0.4ml syringe SUBCUT SCH (20:00)
== END 2022-03-11 14:58 | disposition home health service (06) | DRG 308 ==
LOC: ER 22:23 → ED HOLD 23:39 → UNDOADMIN 23:39 → ORTHO 4S 03-10 07:55
PROVIDERS: ADMIT Family Medicine; ATTEND Family Medicine
PROC: 0QS734Z Reposition Left Upper Femur with Internal Fixation Device, Percutaneous Approach (ICD-10-PCS; principal; 2022-03-10 11:26)
DX: S72.032A Displaced midcervical fracture of left femur, initial encounter for closed fracture (principal); F12.10 Cannabis abuse, uncomplicated; I10 Essential (primary) hypertension; Z20.822 Contact with and (suspected) exposure to COVID-19; G89.4 Chronic pain syndrome; R26.2 Difficulty in walking, not elsewhere classified; W22.09XA Striking against other stationary object, initial encounter; V00.131A Fall from skateboard, initial encounter; Y93.51 Activity, roller skating (inline) and skateboarding; Z79.891 Long term (current) use of opiate analgesic; Z88.5 Allergy status to narcotic agent
CPT/HCPCS: 36415; 71045; 72192; 73502; 76000; 80053; 83735; 83880; 84100; 85025; 85610; 85730; 86885; 86900; 86901; 87081; 87635; 93005; 96374; 96375; 97116; 97161; 97530; 99285; A4215; A4618; A6222; A6258; A6449; A7000; C1713; C1769; G0378; J0690; J1170; J2250; J2270; J2405; J2704; J3010; J3370; J7030; S0020

== ENCOUNTER 2025-02-11 09:52 | Emergency (ER) | payer MEDICAID ==
[~2025-02-11] VITALS: Ht 180.3 cm; Wt 72.7 kg
[~2025-02-11 09:52] MED LIST changes: +CYCL-1 PO; +ENOX40DI11 SUBCUT; +METH-603 PO; -METH10OR2 PO; +PANT40TA54 PO; -temazepam 15mg capsule PO PRN
[2025-02-11 09:58] VITALS: BP 136/91; PULSE 80; RESP 16; TEMP 98.9; O2SAT 98
== END 2025-02-11 10:22 | disposition home or self-care (01) ==
LOC: ER 09:52
DX: L03.211 Cellulitis of face (principal); M27.2 Inflammatory conditions of jaws; F12.90 Cannabis use, unspecified, uncomplicated; Z88.5 Allergy status to narcotic agent; Z79.899 Other long term (current) drug therapy; Z72.89 Other problems related to lifestyle
CPT/HCPCS: 99282

== ENCOUNTER 2025-10-17 16:02 | Emergency (ER) | payer MEDICAID ==
[~2025-10-17] VITALS: Ht 180.3 cm; Wt 70.5 kg
[2025-10-17 16:25] VITALS: BP 104/72; PULSE 90; RESP 18; TEMP 97.1; O2SAT 98
[2025-10-17] MEDS ORDERED: DOXY-1 PO (17:32)
--- NOTE | 2025-10-17 17:36 | Physician Documentation ---
History of Present Illness ~ Chief Complaint: STD Stated Complaint: STD Time Seen by MD: 16:22 Primary Medical Doctor: PSYCHIATRIC HPI This is a 40-year-old male who presents after potential exposure to syphilis, patient reports having unprotected sex with a partner who potentially has syphilis, patient reports he is unable to confirm contact though would like testing and his requesting prophylactic treatment as his partner is also starting presumptive treatment. Patient reports no symptoms of syphilis and rep orts no other acute symptoms or concerns. Medication Reconciliation Allergies: Coded Allergies: codeine (Verified Adverse Reaction, Mild, GI, 10/17/25) Scheduled Doxycycline Hyclate (Doxycycline Hyclate), 1 CAP PO Q12H Enoxaparin Sodium (Enoxaparin Sodium), 40 MG SUBCUT DAILY@2000 Methadone Hcl* (Dolophine*), 28 MG PO DAILY, (Reported) Pantoprazole Sodium (Pantoprazole Sodium), 40 MG PO BKF Scheduled PRN Cyclobenzaprine* (Cyclobenzaprine*), 10 MG PO Q6H PRN for muscle spasms Past Medical History Past Medical History: No Pertinent History Past Surgical History: no surgical history Patient History: Patient reports no known family medical history. Alcohol Use: Occasionally Drug Use: marijuana Lives with: Family Lives In: Home Occupation: employed Review of Systems ROS As stated above in the HPI, otherwise all systems are reviewed and negative. Physical Exam Vital Signs: Temperature: 97.1, Source: Temporal, Heart Rate: 90, Respiratory Rate: 18, BP: 104/72, Pulse Oximetry: 98, Weight: 70.450 Physical Exam VITALS: Reviewed and as above. GENERAL: Alert, nontoxic appearing, no apparent distress. RESPIRATORY: No increased work of breathing, no respiratory distress, speaking in full clear sentences Progress Results/Orders Results/Orders Orders - RD CORNEJO RPR (10/17/25 16:32) Completed Orders - RD CORNEJO Syphilis Screen Poc (10/17/25 16:32) Hiv Ab 1&2 Rapid Scn (10/17/25 16:32) Vital Signs 10/17/25 16:25 Temp 97.1 Pulse 90 Resp 18 B/P (MAP) 104/72 Pulse Ox 98 Laboratory Tests Test 10/17/25 16:49 Syphilis Serology Negative HIV (1&2) Antibody Non-reactive Medical Decision Making Additional information obtaine: N/A Findings This is a 31-year-old male presented with potential syphilis exposure, given his current partner who is actively having unprotected sex with is received being presumptive treatment for syphilis at this time he will be also started on prophylactic treatment after syphilis exposure. This otherwise well-appearing and it is reassuring he reported no symptoms of syphilis. Patient provided home care instructions, follow up instructions, and return to care precautions which he verbalized understanding of. Urinary Diff Dx:Considerations: Include: Urolithiasis, Urethritis, UTI Genital Diff Dx:Considerations: Include: Prostatitis, Syphilis, Testicular torsion, Urethritis, Urethritis-chlamydial, Urethritis-gonococcal, UTI Departure Time of Disposition: 17:35 Disposition: 01 HOME / SELF CARE / HOMELESS Impression: Primary Impression: Sexually transmitted disease Condition: Improved Discharge Instructions: Sexually Transmitted Disease Additional Instructions: Please take the antibiotics as prescribed for the next 14 days, abstain from sex during this time and do not have unprotected sex until you have a confirmation of treatment to include being tested again for syphilis if your 1st test comes back positive. Please follow up with your primary care provider in the next few days. Please return to the emergency department for any new or worsening concerning symptoms. Referrals: NO PRIMARY CARE PROVIDER (PCP) Prescriptions Doxycycline Hyclate (Doxycycline Hyclate) 100 Mg Capsule 1 CAP PO Q12H for 14 Days, #28 CAP Prov: RD CORNEJO 10/17/25 Education Educated: Patient Educated regarding: diagnosis, treatment, prognosis, need for follow up Signature Scribe Signature: No scribe Attestation: The note accurately reflects work and decisions made by me.SANDRA Palomares 10/17/25 23:41 RD CORNEJO Oct 17, 2025 17:36
[2025-10-17 17:45] LABS: HIV ANTIBODY 1&2 RAPID NON-REACTIVE (Neg)
[2025-10-17 18:33] LABS: SYPHILIS SCREENING TEST POC NEGATIVE (Negative)
== END 2025-10-17 18:10 | disposition home or self-care (01) ==
LOC: ER 16:02
DX: A64 Unspecified sexually transmitted disease (principal); F12.90 Cannabis use, unspecified, uncomplicated; Z88.5 Allergy status to narcotic agent
CPT/HCPCS: 36415; 86592; 86703; 99283